=== PATIENT | male | born 1960 | race Caucasian/White ===

== ENCOUNTER 2020-07-30 07:29 | Outpatient (CLI) | payer MEDICARE, MEDICAID, SELFPAY ==
[2020-07-30 08:33] LABS: Hematocrit 37.8 % (42.0-52.0); Hemoglobin 12.5 g/dL (14.0-18.0); Mean Corpuscular HGB Conc 33.1 g/dl (32-36); Mean Corpuscular Hemoglobin 30.9 pg (26-34); Mean Corpuscular Volume 93.6 fl (80-100); Mean Platelet Volume 9.7 fl (7.4-10.4); Platelet Count Result 220 k/mm3 (150-375); Red Blood Count 4.04 M/mm3 (4.6-6.20); Red Cell Distribution Width 13.2 % (11.5-14.5)
[2020-07-30 08:47] LABS: Alanine Aminotransferase 27 U/L (4-50); Albumin Level 3.9 g/dL (3.5-5.1); Alkaline Phosphatase 95 U/L (38-126); Anion Gap 3 mmol/L (8-16); Aspartate Amino Transferase 30 U/L (17-59); Bilirubin,Total 0.3 mg/dL (0.2-1.3); Blood Urea Nitrogen 20 mg/dL (9-20); Calcium 9.1 mg/dL (8.4-10.2); Carbon Dioxide 34 mmol/L (22-30); Chloride 99 mmol/L (98-107); Cholesterol 197 mg/dL (0-200); Estimated Glomerular Filt Rate > 60; Glucose 120 mg/dL (75-110); HDL Direct 68 mg/dL; Potassium 4.6 mmol/L (3.4-5.0); Sodium 136 mmol/L (137-145); Triglycerides 57 mg/dL (<150)
[2020-07-30 08:58] LABS: LDL Cholesterol Direct 103 mg/dL
== END 2020-07-30 07:30 | disposition home or self-care (01) ==
PROVIDERS: PCP Nurse Practitioner Family; Visit Provider Nurse Practitioner Family
DX: E78.5 Hyperlipidemia, unspecified (principal); Z79.899 Other long term (current) drug therapy
CPT/HCPCS: 36415; 80053; 80061; 85027

== ENCOUNTER 2020-08-29 08:49 | Outpatient (CLI) | payer MEDICARE, MEDICAID, SELFPAY ==
--- NOTE | ~2020-08-29 | MR_ITS ---
EXAMINATION: MR lumbar spine wo con DATE: 08/29/2020 09:56 INDICATION: Lumbar radiculopathy. TECHNIQUE: Magnetic resonance imaging (MRI) of the lumbar spine was performed without intravenous con trast. Sequences included sagittal T2-weighted FSE, sagittal T2-weighted FS FSE, sagittal T1-weighted FSE, and axial T2-weighted FSE. COMPARISON: Lumbar spine MRI 02/28/2014 FINDINGS: There is 24 degrees levoscoliosis of thoracic lumbar spine. There is 3 mm retrolisthesis of L1 on L2 and L2 on L3. There is mild chronic anterior wedging of T11 and T12 vertebral bodies. There is moderately decreased disc height at T11-T12 and T12-L1, severely decreased disc height at L1-L2, moderately decreased disc height at L2-L3 and L3-L4, and mildly decreased disc height at L4-L5. The d istal spinal cord signal intensity is normal. The conus medullaris is at T12-L1. Mild epidural lipoma tosis is noted. The following disc levels are specifically discussed: L1-L2: The disc is bulging. There is severe right and mild left facet joint osteoarthritis. There is mild right neural foraminal stenosis. There is mild central canal stenosis. L2-L3: The disc is bulging and has an annular fissure. There is mild right and moderate left facet stephanie int osteoarthritis. There is moderate right and mild left neural foraminal stenosis. There is mild ce ntral canal stenosis. L3-L4: The disc is bulging. There is severe bilateral facet joint osteoarthritis. There is moderate b ilateral neural foraminal stenosis. There is mild central canal stenosis. L4-L5: The disc is bulging. There is severe bilateral facet joint osteoarthritis. There is moderate b ilateral neural foraminal stenosis. There is mild central canal stenosis. L5-S1: There is a central protrusion. There is severe bilateral facet joint osteoarthritis. There is mild bilateral neural foraminal stenosis. There is mild central canal stenosis. IMPRESSION: 1. Severe lumbar spondylosis, worsened from 02/28/2014. 2. Thoracolumbar levoscoliosis. Reviewed, dictated and finalized at location A. EL BUNG REMOVER AND DUMPER
== END 2020-08-29 08:50 | disposition home or self-care (01) ==
LOC: ANHIMG 08:54
PROVIDERS: PCP Nurse Practitioner Family; Visit Provider Nurse Practitioner Family
DX: M47.27 Other spondylosis with radiculopathy, lumbosacral region (principal); M47.25 Other spondylosis with radiculopathy, thoracolumbar region; M43.16 Spondylolisthesis, lumbar region; M41.9 Scoliosis, unspecified; M48.07 Spinal stenosis, lumbosacral region; M48.05 Spinal stenosis, thoracolumbar region
CPT/HCPCS: 72148

== ENCOUNTER 2020-10-22 07:49 | Outpatient (CLI) | payer MEDICARE, MEDICAID, SELFPAY ==
[2020-10-22 10:15] LABS: Iron 119 ug/dL (49-181)
[2020-10-22 10:26] LABS: Percent Iron Saturation 34 % (20-50)
== END 2020-10-22 07:50 | disposition home or self-care (01) ==
LOC: ANHLAB 08:00
PROVIDERS: PCP Nurse Practitioner Family; Visit Provider Nurse Practitioner Family
DX: D64.9 Anemia, unspecified (principal)
CPT/HCPCS: 36415; 82607; 83540; 83550

== ENCOUNTER 2021-01-22 08:24 | Outpatient (CLI) | payer MEDICARE, MEDICAID, SELFPAY | END 2021-01-22 08:25 | disposition home or self-care (01) | LOC: ANHCOVIDVC 08:24 | PROVIDERS: PCP Nurse Practitioner Family | DX: Z23 Encounter for immunization (principal) | CPT/HCPCS: 0001A; 91300 ==

== ENCOUNTER 2021-02-12 08:31 | Outpatient (CLI) | payer MEDICARE, MEDICAID, SELFPAY | END 2021-02-12 08:32 | LOC: ANHCOVIDVC 08:32 | PROVIDERS: PCP Nurse Practitioner Family | DX: Z23 Encounter for immunization (principal) | CPT/HCPCS: 0002A; 91300 ==

== ENCOUNTER 2021-09-04 07:54 | Outpatient (CLI) | payer MEDICARE, MEDICAID, SELFPAY ==
--- NOTE | ~2021-09-04 | XR_ITS ---
EXAMINATION: XR lumbar spine min 4V DATE: 09/04/2021 10:02 INDICATION: Scoliosis survey TECHNIQUE: 4 views of the lumbar spine were obtained including anteroposterior and lateral in neutral , flexion and extension views. COMPARISON: Lumbar spine MR dated 09/04/2021 FINDINGS: 30 degrees lumbar levoscoliosis measured between T11 and L3. 2 mm retrolisthesis L2 on L3 which remai ns unchanged with flexion and increases to 3 mm with extension. 4 mm anterolisthesis L4 on L5 which i ncreases to 6 mm with flexion and decreases to 2 mm with extension. Vertebral body heights are normal . Moderate to severe right-sided disc height loss at L1-L2 and L2-L3. Moderate right-sided predominan t disc height loss at L3-L4, moderate disc height loss at T8-T9, T10-T11, T11-T12 and L4-L5 and mild disc height loss at L5-S1. Moderate to severe lower lumbar facet osteoarthritis. Ankylosis across the cephalad aspect of the left sacral iliac joint. Mild osteoarthritis at the right sacroiliac joint. L tio bases are clear. Heart size is normal. IMPRESSION: 1. Lumbar levorotoscoliosis with severe spondylosis. 2. 2 mm retrolisthesis L2 on L3 without significant change with flexion or extension and 4 mm anterol isthesis L4 on L5 which increases by 2 mm with flexion and decreases 2 mm with extension. Reviewed, dictated and finalized at location A. OAT ENGINEER IMPRESSION: 1. Lumbar levorotoscoliosis with severe spondylosis. 2. 2 mm retrolisthesis L2 on L3 without significant change with flexion or exte nsion and 4 mm anterolisthesis L4 on L5 which increases by 2 mm with flexion an d decreases 2 mm with extension.
--- NOTE | ~2021-09-04 | MR_ITS ---
EXAMINATION: MR lumbar spine wo con DATE: 09/04/2021 09:43 INDICATION: Scoliosis. Back pain. Right hip and leg pain. TECHNIQUE: Magnetic resonance imaging (MRI) of the lumbar spine was performed without intravenous con trast. Sequences included sagittal T2-weighted FSE, sagittal T2-weighted FS FSE, coronal T2-weighted FSE, sagittal T1-weighted FSE, and axial T2-weighted FSE. COMPARISON: Lumbar spine MRI 08/29/2020 FINDINGS: There is 21 degrees levoscoliosis of thoracolumbar spine. There is 4 mm retrolisthesis of L 2 on L3 and 3 mm anterolisthesis of L4 on L5. There is moderately decreased disc height at T12-L1, se verely decreased disc height at L1-L2 and L2-L3, and moderately decreased disc height at L3-L4 and L4 -L5 with endplate remodeling. The distal spinal cord signal intensity is normal. The conus medullaris is at T12-L1. The following disc levels are specifically discussed: T12-L1: The disc is bulging. There is mild bilateral facet joint osteoarthritis. There is mild left n eural foraminal stenosis. There is mild central canal stenosis. L1-L2: The disc is bulging and has an annular fissure. There is mild bilateral facet joint osteoarthr itis. There is moderate right and mild left neural foraminal stenosis. There is mild central canal st enosis. L2-L3: The disc is bulging with superimposed right central extrusion with mass effect on right L3 ner ve root in right lateral recess. There is mild lateral facet joint osteoarthritis. There is moderate right and mild left neural foraminal stenosis. There is mild central canal stenosis. There is moderat e stenosis of right lateral recess. L3-L4: The disc is bulging and has an annular fissure. There is severe right and moderate left facet joint osteoarthritis. There is moderate bilateral neural foraminal stenosis. There is moderate centra l canal stenosis. L4-L5: The disc is bulging with superimposed left subarticular and foraminal zone extrusion. There is severe bilateral facet joint osteoarthritis. There is a 5 mm synovial cyst from left facet joint in the central spinal canal. There is moderate and severe left neural foraminal stenosis. There is sever e central canal stenosis. L5-S1: The disc does not extend beyond the endplate margin. There is moderate bilateral facet joint o steoarthritis. There is mild bilateral neural foraminal stenosis. There is no central canal stenosis. IMPRESSION: 1. Severe lumbar spondylosis, worsened from 08/29/2020. 2. Thoracolumbar levoscoliosis. Reviewed, dictated and finalized at location B. SITIONAL LIVING SPECIALIST
--- NOTE | ~2021-09-04 | XR_ITS ---
EXAMINATION: XR scoliosis survey DATE: 09/04/2021 10:02 INDICATION: Scoliosis TECHNIQUE: TECHNIQUE: Standing AP and lateral views of the entire spine were obtained on 3 overlappin g cephalad to caudal images. COMPARISON: CT lumbar spine dated 10/23/2013 FINDINGS: 30 degree lumbar levorotoscoliosis measured between T12 and L4. 17 degree thoracic dextro scoliosis b etween T6 and T12. Vertebral body heights are normal. 4 mm anterolisthesis L4 on L5 with mild associa moragn disc height loss. Moderate to severe right-sided predominant disc height loss from T12-L1 through L2-L3. Mild disc height loss with mild degenerative endplate changes at multiple levels in the mid t o lower thoracic spine. Bilateral reverse total shoulder arthroplasties. Visualized portions of the l ungs are clear. Cardiomediastinal silhouette is normal. Normal bowel gas pattern. IMPRESSION: 1. 17 degree thoracic dextro scoliosis in 30 degrees lumbar levorotoscoliosis. 2. Mild thoracic and moderate to severe lumbar spondylosis. Reviewed, dictated and finalized at location A. EL TRUCK TECHNICIAN
== END 2021-09-04 07:55 | disposition home or self-care (01) ==
LOC: ANHIMG 08:06
PROVIDERS: PCP Nurse Practitioner Family
DX: M41.9 Scoliosis, unspecified (principal); M47.894 Other spondylosis, thoracic region; M47.896 Other spondylosis, lumbar region
CPT/HCPCS: 72082; 72110; 72148

== ENCOUNTER 2021-12-29 07:08 | Emergency (ER) | payer MEDICARE, MEDICAID, SELFPAY ==
[2021-12-29 07:08] VITALS: BP 155/88; PULSE 84; RESP 16; TEMP 36.6; O2SAT 95
--- NOTE | 2021-12-29 07:50 | PC.NURSE ---
Patient verbally aggressive toward this RN. Demanding pain medication immediately and threatening to leave ER if he doesn't receive medication. made aware.
[2021-12-29] MEDS: ONDANSETRON HCL ODT 4 MG TABLET PO (07:58)
[2021-12-29] MEDS: HYDROmorphone HCL INJ (*CRX) 1 MG/ML SYR IM (07:58)
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
--- NOTE | 2021-12-29 08:31 | PC.NURSE ---
Patient returned from CT and is now asleep in stretcher with call-light within reach.
[2021-12-29] MEDS: diazePAM INJ (*CRX) 10 MG/2 ML SYRINGE 5 MG IM (08:51)
--- NOTE | 2021-12-29 09:15 | PC.NURSE ---
Dr. Pantoja back at bedside to re-evaluate patient.
[2021-12-29] MEDS: KETOROLAC (*BKC) 60 MG/2 ML VIAL IM (09:37)
--- NOTE | 2021-12-29 10:10 | PC.NURSE ---
Patient's called. Will arrange transport when patient is discharged. [phone] Gia
--- NOTE | 2021-12-29 10:26 | PC.NURSE ---
Patient continues to refuse CT as he states that he can not tolerate the pain of lying on his back. made aware.
[2021-12-29 11:16] VITALS: BP 187/100; PULSE 99; RESP 16; O2SAT 98
== END 2021-12-29 11:19 | disposition home or self-care (01) ==
PROVIDERS: Emergency Provider Emergency Medicine; PCP Nurse Practitioner Family
DX: M54.50 Low back pain, unspecified (principal); G89.29 Other chronic pain; J44.9 Chronic obstructive pulmonary disease, unspecified; G47.33 Obstructive sleep apnea (adult) (pediatric); Z96.611 Presence of right artificial shoulder joint
CPT/HCPCS: 96372; 99284; A9270; J1170; J1885; J3360

== ENCOUNTER 2021-12-30 00:51 | Emergency (ER) | payer MEDICARE, MEDICAID, SELFPAY ==
[2021-12-30] VITALS (14 sets, daily range): BP systolic 170–185; BP diastolic 99–124; PULSE 82–100; RESP 18–29; TEMP 36.6; O2SAT 95–100
--- NOTE | 2021-12-30 02:41 | PC.NURSE ---
Patient frequently asking for pain medication. Patient informed that the provider will be in to see him, and he will order medications. Patient demanding I need pain medicine. ERP aware.
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
[2021-12-30] MEDS: CYCLOBENZAPRINE HCL 10 MG TABLET PO (03:06)
[2021-12-30] MEDS: HYDROmorphone HCL INJ (*CRX) 1 MG/ML SYR IV PUSH (03:07)
--- NOTE | 2021-12-30 03:22 | PC.NURSE ---
Called patients to inform of his discharge and discharge instructions. She stated she does not drive and she will try to arrange to see if she can have someone come pick him up. She stated she will try to call the med cab they normally use or a friend to come pick him up. She stated she will call back with an update on transportation for him.
--- NOTE | 2021-12-30 03:33 | PC.NURSE ---
Patients calls back to inform that someone is on their way to come pick him up.
== END 2021-12-30 03:42 | disposition home or self-care (01) ==
PROVIDERS: Emergency Provider Emergency Medicine; PCP Nurse Practitioner Family
DX: M54.42 Lumbago with sciatica, left side (principal); J44.9 Chronic obstructive pulmonary disease, unspecified; G47.33 Obstructive sleep apnea (adult) (pediatric)
CPT/HCPCS: 96374; 96375; 99284; A9270; J1100; J1170

== ENCOUNTER 2022-02-17 07:39 | Outpatient (CLI) | payer MEDICARE, MEDICAID, SELFPAY ==
--- NOTE | ~2022-02-17 | US_ITS ---
EXAMINATION: US arterial ankle brachial ind DATE: 02/17/2022 08:17 INDICATION: 1 block claudication. Peripheral vascular disease. Hypertension. History of stroke. TECHNIQUE: Segmental pressures and plethysmographic and Doppler waveforms of the brachial and lower e xtremity arteries were obtained. COMPARISON: None. FINDINGS: Right and left brachial artery pressures of 119 mm Hg and 126 mm Hg, respectively, are concordant (no rmal difference <= 30 mmHg). The right ankle-brachial index (SYED) is 1.12 (normal >= 0.9-1.0). The right great toe-brachial index (TBI) is 0.69 (normal >= 0.65). Arterial Doppler waveforms are biphasic. The left SYED is 1.12. The left TBI is 0.43. Arterial Doppler waveforms are biphasic. IMPRESSION: Bilateral normal SYED 1.12 Normal right TBI is 0.69 Depressed left TBI of 0.43 Reviewed, dictated and finalized at Location A. Reviewed, dictated and finalized at location B.
== END 2022-02-17 07:40 | disposition home or self-care (01) ==
PROVIDERS: PCP Family Medicine; Visit Provider Nurse Practitioner Family
DX: I73.9 Peripheral vascular disease, unspecified (principal)
CPT/HCPCS: 93922

== ENCOUNTER 2022-05-01 13:58 | Emergency (ER) | payer MEDICARE, MEDICAID, SELFPAY ==
[2022-05-01] VITALS (7 sets, daily range): BP systolic 158–173; BP diastolic 83–87; PULSE 66–87; RESP 16–29; O2SAT 96–99
--- NOTE | ~2022-05-01 | XR_ITS ---
EXAMINATION: XR pelvis 1-2V DATE: 05/01/2022 15:51 INDICATION: Left lower limb pain. TECHNIQUE: An anteroposterior view of the pelvis was obtained. COMPARISON: None. FINDINGS: There is levoscoliosis and moderate spondylosis of lumbar spine. No fracture. There is mild right hip osteoarthritis and moderate left hip osteoarthritis. IMPRESSION: 1. Mild right hip osteoarthritis and moderate left hip osteoarthritis. Reviewed, dictated and finalized at location A.
--- NOTE | ~2022-05-01 | XR_ITS ---
EXAMINATION: XR femur LT min 2V DATE: 05/01/2022 15:50 INDICATION: Left thigh pain. TECHNIQUE: 2 views of left femur on 4 radiographs were obtained. COMPARISON: None. FINDINGS: Bone alignment is normal. No fracture. There is moderate left hip osteoarthritis. No knee j oint effusion. IMPRESSION: 1. Moderate left hip osteoarthritis. Reviewed, dictated and finalized at location A.
--- NOTE | ~2022-05-01 | XR_ITS ---
EXAMINATION: XR chest 1V portable DATE: 05/01/2022 15:50 INDICATION: Wheezing. TECHNIQUE: A single frontal view of the chest was obtained. COMPARISON: Chest 2 views 11/28/2010 FINDINGS: There is mild atelectasis at left lung base. No pleural effusion or pneumothorax. The heart size is normal. There are bilateral shoulder arthroplasties. IMPRESSION: 1. Mild atelectasis at left lung base. Reviewed, dictated and finalized at location A.
--- NOTE | 2022-05-01 14:46 | ECG_ITS ---
Measurements Intervals [place] Rate: 78 P: 57 MT: 159 QRS: 6 QRSD: 79 T: 25 QT: 341 QTc: 390 Interpretive Statements SINUS RHYTHM CANNOT RULE OUT SEPTAL INFARCT, AGE INDETERMINATE CONSIDER INFERIOR INFARCT, AGE INDETERMINATE BASELINE ARTIFACT- I, II, III, AVR, AVL, AVF ABNORMAL ECG Electronically Signed On 05-01-2022 16:23:39 CDT by Chico Amador D.O.
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
[2022-05-01] MEDS: MORPHINE SULFATE (*CRX) 4 MG/ML INJ IV PUSH (14:51)
[2022-05-01] MEDS: ONDANSETRON INJ 4 MG/2 ML VIAL IV PUSH (14:51)
[2022-05-01 15:06] LABS: Basophils Absolute Auto 0.1 K/mm3 (0.0-0.1); Basophils Percent Auto 1.1 % (0.2-1.2); Eosinophils Absolute Auto 0.2 K/mm3 (0-0.3); Eosinophils Percent Auto 1.7 % (0-4.4); Hematocrit 37.5 % (42.0-52.0); Hemoglobin 12.4 g/dL (14.0-18.0); Immature Granulocyte Absolute 0.03 K/mm3 (0.00-0.031); Immature Granulocyte Percent A 0.3 % (0-0.5); Lymphocytes Absolute Auto 1.17 K/mm3 (0.9-3.2); Lymphocytes Percent Auto 13.3 % (18.3-44.2); Mean Corpuscular HGB Conc 33.1 g/dl (32-36); Mean Corpuscular Hemoglobin 30.6 pg (26-34); Mean Corpuscular Volume 92.6 fl (80-100); Mean Platelet Volume 9.7 fl (7.4-10.4); Monocytes Percent Auto 11.6 % (2.6-8.5); Neutrophils Absolute Auto 6.3 K/mm3 (1.3-6.7); Platelet Count Result 225 k/mm3 (150-375); Red Blood Count 4.05 M/mm3 (4.6-6.20); Red Cell Distribution Width 12.9 % (11.5-14.5); White Blood Count 8.8 K/mm3 (4.5-10.0)
[2022-05-01 15:14] LABS: Alveolar/Arterial O2 Gradient 19.9 mmHg; Base Excess ABG 3.4 mEq/l (+/-2.0); Carboxyhemoglobin 1.5 % THb (0-2.0); Device ROOM AIR; Fractional Inspired Oxygen 21 %; HCO3 ABG 29.1 mEq/l (22.0-26.0); Methemoglobin ABG 0.1 %THb (0-1.5); Modified Allen's Test Pass; Oxygen Content ABG 16.6 %vol (16.0-22.0); Oxygen Saturation ABG 94.2 % (95.0-100.0); Oxyhemoglobin 91.6 % THb (90.0-100.0); PCO2 ABG 48.6 mmHg (35.0-45.0); PO2 ABG 71.6 mmHg (80.0-100.0); PO2 FiO2 Ratio Arterial Blood 3.41 %; Reduced Hemoglobin 6.8 %THb (0-5.0); Site Drawn RIGHT RADIAL; Total Hemoglobin 12.9 g/dL (12.0-18.0); pH ABG 7.395 (7.350-7.450)
[2022-05-01 15:24] LABS: Alanine Aminotransferase 19 U/L (6-50); Albumin Level 4.2 g/dL (3.5-5.1); Alkaline Phosphatase 83 U/L (38-126); Anion Gap 4 mmol/L (8-16); Aspartate Amino Transferase 30 U/L (17-59); Bilirubin,Total 0.5 mg/dL (0.2-1.3); Blood Urea Nitrogen 13 mg/dL (9-20); Calcium 9.3 mg/dL (8.4-10.2); Carbon Dioxide 29 mmol/L (22-30); Chloride 103 mmol/L (98-107); Estimated CRCL calculation 77 ml/min; Estimated Glomerular Filt Rate > 60; Glucose 96 mg/dL (65-110); Potassium 4.1 mmol/L (3.4-5.0); Sodium 136 mmol/L (137-145)
[2022-05-01 15:27] LABS: Prothrombin Time 12.7 Seconds (11.1-14.7)
[2022-05-01 15:35] LABS: NT Pro B Type Natriuretic Pept 125 pg/mL (5-100); Troponin I < 0.012 ng/mL (0.000-0.034)
[2022-05-01 15:38] LABS: Appearance Urine Clear (Clear); Bilirubin Urine Negative (Negative); Blood Urine Negative (Negative); Color Urine Yellow (Yellow); Glucose Urine UA Negative (Negative); Ketones Urine Negative (Negative); Leukocyte Esterase Ur Negative LEU/UL (Negative); Nitrate Urine Negative (Negative); Protein Urine Negative (Negative); Specific Grav Ur 1.015 (1.001-1.035); Urobilinogen Urine 0.2 mg/dL (<2.0); pH Urine 7.5 (5.0-9.0)
[2022-05-01 15:57] LABS: Add Urine Microscopic? NO
[2022-05-01] MEDS: traMADol HCL (*CRX) 50 MG TABLET PO (18:51)
== END 2022-05-01 19:06 | disposition home or self-care (01) ==
PROVIDERS: Emergency Provider General Practice; PCP Nurse Practitioner Family
DX: M16.0 Bilateral primary osteoarthritis of hip (principal); M79.605 Pain in left leg; R60.0 Localized edema; J42 Unspecified chronic bronchitis; I10 Essential (primary) hypertension; G47.33 Obstructive sleep apnea (adult) (pediatric); Z96.611 Presence of right artificial shoulder joint; R94.31 Abnormal electrocardiogram [ECG] [EKG]
CPT/HCPCS: 36415; 36600; 71045; 72170; 73552; 80053; 81003; 82375; 82805; 83050; 83880; 84484; 85025; 85610; 85730; 93005; 96374; 96375; 99284; A9270; J2270; J2405

== ENCOUNTER 2022-08-13 08:33 | Outpatient (CLI) | payer MEDICARE, MEDICAID, SELFPAY ==
[2022-08-13 19:34] LABS: Alanine Aminotransferase 25 U/L (6-50); Albumin Level 4.4 g/dL (3.5-5.1); Alkaline Phosphatase 86 U/L (38-126); Anion Gap 9 mmol/L (8-16); Aspartate Amino Transferase 33 U/L (17-59); Bilirubin,Total 0.6 mg/dL (0.2-1.3); Blood Urea Nitrogen 12 mg/dL (9-20); Calcium 8.8 mg/dL (8.4-10.2); Carbon Dioxide 27 mmol/L (22-30); Chloride 100 mmol/L (98-107); Cholesterol 235 mg/dL (0-200); Estimated Glomerular Filt Rate > 60; Glucose 107 mg/dL (65-110); HDL Direct 56 mg/dL; Potassium 4.6 mmol/L (3.4-5.0); Sodium 136 mmol/L (137-145); Triglycerides 72 mg/dL (<150)
[2022-08-13 19:45] LABS: LDL Cholesterol Direct 133 mg/dL
== END 2022-08-13 08:34 | disposition home or self-care (01) ==
LOC: ANHGOSHLAB 08:39
PROVIDERS: PCP Nurse Practitioner Family; Visit Provider Nurse Practitioner Family
DX: E78.5 Hyperlipidemia, unspecified (principal); I10 Essential (primary) hypertension
CPT/HCPCS: 36415; 80053; 80061

== ENCOUNTER 2023-02-19 09:53 | Outpatient (CLI) | payer MEDICARE, MEDICAID, SELFPAY ==
[2023-02-19 19:25] LABS: Basophils Absolute Auto 0.1 K/mm3 (0.0-0.1); Basophils Percent Auto 1.3 % (0.2-1.2); Eosinophils Absolute Auto 0.2 K/mm3 (0-0.3); Eosinophils Percent Auto 2.7 % (0-4.4); Hematocrit 41.2 % (42.0-52.0); Hemoglobin 13.3 g/dL (14.0-18.0); Immature Granulocyte Absolute 0.03 K/mm3 (0.00-0.031); Immature Granulocyte Percent A 0.3 % (0-0.5); Lymphocytes Absolute Auto 1.31 K/mm3 (0.9-3.2); Lymphocytes Percent Auto 15.3 % (18.3-44.2); Mean Corpuscular HGB Conc 32.3 g/dl (32-36); Mean Platelet Volume 11.2 fl (7.4-10.4); Monocytes Absolute Auto 0.8 K/mm3 (0.1-0.6); Monocytes Percent Auto 9.3 % (2.6-8.5); Neutrophils Absolute Auto 6.1 K/mm3 (1.3-6.7); Neutrophils Percent Auto 71.1 % (45.5-73.1); Platelet Count Result 218 k/mm3 (150-375); Red Blood Count 4.43 M/mm3 (4.6-6.20); Red Cell Distribution Width 13.7 % (11.5-14.5); White Blood Count 8.6 K/mm3 (4.5-10.0)
[2023-02-19 19:48] LABS: LDL Cholesterol Direct 134 mg/dL
[2023-02-19 19:51] LABS: Thyroid Stimulating Hormone 0.707 uIU/mL (0.465-4.680)
[2023-02-19 19:55] LABS: Alanine Aminotransferase 20 U/L (6-50); Albumin Level 4.1 g/dL (3.5-5.1); Alkaline Phosphatase 95 U/L (38-126); Anion Gap 2 mmol/L (8-16); Aspartate Amino Transferase 41 U/L (17-59); Bilirubin,Total 0.8 mg/dL (0.2-1.3); Blood Urea Nitrogen 16 mg/dL (9-20); Calcium 8.7 mg/dL (8.4-10.2); Carbon Dioxide 32 mmol/L (22-30); Chloride 101 mmol/L (98-107); Cholesterol 207 mg/dL (0-200); Estimated Glomerular Filt Rate > 60; Glucose 89 mg/dL (65-110); HDL Direct 47 mg/dL; Potassium 5.1 mmol/L (3.4-5.0); Sodium 135 mmol/L (137-145); Triglycerides 73 mg/dL (<150)
[2023-02-19 22:13] LABS: Prostate Specific Antigen 1.8 ng/mL (< OR = 4.0)
== END 2023-02-19 09:54 | disposition home or self-care (01) ==
LOC: ANHGOSHLAB 09:54
PROVIDERS: PCP Family Medicine; Visit Provider Nurse Practitioner Family
DX: E78.5 Hyperlipidemia, unspecified (principal); I10 Essential (primary) hypertension; Z12.5 Encounter for screening for malignant neoplasm of prostate
CPT/HCPCS: 36415; 80053; 80061; 84153; 84443; 85025; G0103

== ENCOUNTER 2023-08-27 08:35 | Outpatient (CLI) | payer MEDICARE, MEDICAID, SELFPAY ==
[2023-08-27 19:23] LABS: Basophils Absolute Auto 0.1 K/mm3 (0.0-0.1); Basophils Percent Auto 1.5 % (0.2-1.2); Eosinophils Absolute Auto 0.1 K/mm3 (0-0.3); Eosinophils Percent Auto 2.1 % (0-4.4); Hematocrit 39.6 % (42.0-52.0); Hemoglobin 12.5 g/dL (14.0-18.0); Immature Granulocyte Absolute 0.02 K/mm3 (0.00-0.031); Immature Granulocyte Percent A 0.3 % (0-0.5); Lymphocytes Percent Auto 13.5 % (18.3-44.2); Mean Corpuscular HGB Conc 31.6 g/dl (32-36); Mean Corpuscular Hemoglobin 29.6 pg (26-34); Mean Corpuscular Volume 93.8 fl (80-100); Mean Platelet Volume 10.6 fl (7.4-10.4); Monocytes Absolute Auto 0.6 K/mm3 (0.1-0.6); Monocytes Percent Auto 9.6 % (2.6-8.5); Neutrophils Absolute Auto 4.9 K/mm3 (1.3-6.7); Platelet Count Result 227 k/mm3 (150-375); Red Blood Count 4.22 M/mm3 (4.6-6.20); Red Cell Distribution Width 13.8 % (11.5-14.5); White Blood Count 6.7 K/mm3 (4.5-10.0)
[2023-08-27 19:26] LABS: Alanine Aminotransferase 23 U/L (6-50); Albumin Level 4.1 g/dL (3.5-5.1); Alkaline Phosphatase 78 U/L (38-126); Anion Gap 10 mmol/L (8-16); Aspartate Amino Transferase 33 U/L (17-59); Bilirubin,Total 0.9 mg/dL (0.2-1.3); Blood Urea Nitrogen 16 mg/dL (9-20); Calcium 8.8 mg/dL (8.4-10.2); Carbon Dioxide 27 mmol/L (22-30); Chloride 99 mmol/L (98-107); Cholesterol 154 mg/dL (0-200); Estimated Glomerular Filt Rate > 60; Glucose 87 mg/dL (65-110); HDL Direct 56 mg/dL; Potassium 4.8 mmol/L (3.4-5.0); Sodium 136 mmol/L (137-145); Triglycerides 62 mg/dL (<150)
[2023-08-27 19:37] LABS: LDL Cholesterol Direct 78 mg/dL
[2023-08-27 19:43] LABS: Thyroid Stimulating Hormone 0.622 uIU/mL (0.465-4.680)
[2023-08-27 19:54] LABS: Hemoglobin A1C 5.5 % (<5.7)
== END 2023-08-27 08:36 | disposition home or self-care (01) ==
LOC: ANHGOSHLAB 08:37
PROVIDERS: PCP Family Medicine; Visit Provider Nurse Practitioner Family
DX: Z00.00 Encounter for general adult medical examination without abnormal findings (principal); Z13.29 Encounter for screening for other suspected endocrine disorder; R73.03 Prediabetes; I10 Essential (primary) hypertension; Z13.220 Encounter for screening for lipoid disorders
CPT/HCPCS: 36415; 80053; 80061; 83036; 84443; 85025

== ENCOUNTER 2024-02-25 09:01 | Outpatient (CLI) | payer MEDICARE, MEDICAID, SELFPAY ==
[2024-02-25 19:13] LABS: Hematocrit 39.6 % (42.0-52.0); Hemoglobin 12.8 g/dL (14.0-18.0); Mean Corpuscular HGB Conc 32.3 g/dl (32-36); Mean Corpuscular Hemoglobin 29.8 pg (26-34); Mean Corpuscular Volume 92.1 fl (80-100); Platelet Count Result 235 k/mm3 (150-375); Red Cell Distribution Width 13.8 % (11.5-14.5); White Blood Count 7.9 K/mm3 (4.5-10.0)
[2024-02-25 19:23] LABS: Alanine Aminotransferase 26 U/L (6-50); Albumin Level 4.3 g/dL (3.5-5.1); Alkaline Phosphatase 86 U/L (38-126); Anion Gap 6 mmol/L (4-12); Aspartate Amino Transferase 35 U/L (17-59); Bilirubin,Total 0.8 mg/dL (0.2-1.3); Blood Urea Nitrogen 11 mg/dL (9-20); Calcium 8.9 mg/dL (8.4-10.2); Carbon Dioxide 27 mmol/L (22-30); Chloride 100 mmol/L (98-107); Cholesterol 142 mg/dL (0-200); Estimated Glomerular Filt Rate > 60; Glucose 87 mg/dL (65-110); HDL Direct 45 mg/dL; Potassium 4.3 mmol/L (3.4-5.0); Sodium 133 mmol/L (137-145); Triglycerides 71 mg/dL (<150)
[2024-02-25 19:35] LABS: LDL Cholesterol Direct 83 mg/dL
[2024-02-25 19:55] LABS: Prostate Specific Antigen 1.5 ng/mL (< OR = 4.0); Thyroid Stimulating Hormone 0.703 uIU/mL (0.465-4.680)
[2024-02-25 20:05] LABS: Vitamin D 25 Hydroxy 22.8 ng/mL
== END 2024-02-25 09:02 | disposition home or self-care (01) ==
LOC: ANHGOSHLAB 09:03
PROVIDERS: PCP Family Medicine; Visit Provider Nurse Practitioner
DX: E55.9 Vitamin D deficiency, unspecified (principal); Z00.00 Encounter for general adult medical examination without abnormal findings; I10 Essential (primary) hypertension; Z12.5 Encounter for screening for malignant neoplasm of prostate
CPT/HCPCS: 36415; 80053; 80061; 82306; 84153; 84443; 85027; G0103

== ENCOUNTER 2024-03-11 09:41 | Outpatient (CLI) | payer MEDICARE, MEDICAID, SELFPAY ==
--- NOTE | ~2024-03-11 | US_ITS ---
US abdomen limited INDICATION: Right upper quadrant pain PROCEDURE: Realtime right upper abdominal ultrasound. COMPARISON: No prior studies for comparison. FINDINGS: Study limited due to bowel gas. The pancreas is normal without focal mass or pancreatic reji madeline dilation. Liver echotexture is normal without focal mass or intrahepatic biliary dilatation. Th ere is normal directional flow in the portal vein. The gallbladder is normal without stones, gallbladder wall thickening or pericholecystic fluid. Comm on bile duct not adequately visualized. No sonographic Chun's sign. IMPRESSION: 1: Normal limited abdominal ultrasound. Reviewed, dictated and finalized at location B.
== END 2024-03-11 09:42 | disposition home or self-care (01) ==
PROVIDERS: PCP Family Medicine; Visit Provider Nurse Practitioner
DX: R10.11 Right upper quadrant pain (principal)
CPT/HCPCS: 76705

== ENCOUNTER 2024-03-16 08:11 | Outpatient (CLI) | payer MEDICARE, MEDICAID, SELFPAY ==
[2024-03-16 13:04] LABS: Alanine Aminotransferase 24 U/L (6-50); Albumin Level 4.1 g/dL (3.5-5.1); Alkaline Phosphatase 84 U/L (38-126); Aspartate Amino Transferase 55 U/L (17-59); Bilirubin,Total 0.7 mg/dL (0.2-1.3)
== END 2024-03-16 08:12 | disposition home or self-care (01) ==
LOC: ANHGOSHLAB 08:13
PROVIDERS: PCP Family Medicine; Visit Provider Nurse Practitioner Family
DX: R10.11 Right upper quadrant pain (principal); R11.10 Vomiting, unspecified; R19.7 Diarrhea, unspecified
CPT/HCPCS: 36415; 80076

== ENCOUNTER 2024-03-18 08:38 | Outpatient (CLI) | payer MEDICARE, MEDICAID, SELFPAY ==
--- NOTE | ~2024-03-18 | NM_ITS ---
EXAMINATION: NM hepatobiliary w pharm DATE: 03/18/2024 11:05 INDICATION: Right upper quadrant abdominal pain. COMPARISON: Ultrasound 03/11/2024 TECHNIQUE: 5.4 mCi Tc-99m mebrofenin (Choletec) was administered intravenously. Scintigraphic images of the abdomen were obtained for one hour. Then, 1.2 mcg sincalide (Kinevac) IV was administered, an d imaging was continued for 30 minutes. FINDINGS: There is normal clearance of radiotracer from the blood pool. There is homogeneous tracer u ptake by the liver. Activity progresses to the bowel and gallbladder. Gallbladder ejection fraction (GBEF) was 79%. Note that most patients with gallbladder dysfunction have GBEF < 35%, which overlaps with the broad normal range of 10-90%. IMPRESSION: 1. Normal hepatobiliary scintigraphy. Reviewed, dictated and finalized at location E.
== END 2024-03-18 08:39 | disposition home or self-care (01) ==
LOC: ANHIMG 08:40
PROVIDERS: PCP Family Medicine; Visit Provider Nurse Practitioner Family
DX: R10.11 Right upper quadrant pain (principal); R11.10 Vomiting, unspecified
CPT/HCPCS: 78227; A9537; J2805

== ENCOUNTER 2024-06-02 01:56 | Day surgery (SDC) | payer MEDICARE, MEDICAID, SELFPAY ==
[2024-05-13 13:38] VITALS: BMI 23.4
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
[2024-06-02 12:54] VITALS: BP 182/64; PULSE 50; RESP 20; TEMP 35.8; O2SAT 100
[2024-06-02] MEDS: LACTATED RINGERS 1,000 ML 150 ML IV CONT (12:57)
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
[2024-06-02 13:14] VITALS: BP 150/72; PULSE 50; RESP 22; O2SAT 100
[2024-06-02 13:24] VITALS: BP 148/80; PULSE 52; RESP 20; O2SAT 100
[2024-06-02 13:34] VITALS: BP 161/86; PULSE 48; RESP 20; O2SAT 100
== END 2024-06-02 13:43 | disposition home or self-care (01) ==
PROVIDERS: PCP Nurse Practitioner; Referring Provider Nurse Practitioner Family; Visit Provider Internal Medicine Gastroenterology
PROC: 0DJ08ZZ Inspection of Upper Intestinal Tract, Via Natural or Artificial Opening Endoscopic (ICD-10-PCS; CPT 43235; principal; 2024-06-02 13:30)
DX: K29.50 Unspecified chronic gastritis without bleeding (principal); D64.9 Anemia, unspecified; J45.909 Unspecified asthma, uncomplicated; I10 Essential (primary) hypertension; J42 Unspecified chronic bronchitis; M51.06 Intervertebral disc disorders with myelopathy, lumbar region; G47.33 Obstructive sleep apnea (adult) (pediatric); F20.9 Schizophrenia, unspecified; F12.90 Cannabis use, unspecified, uncomplicated; Z79.51 Long term (current) use of inhaled steroids; Z98.890 Other specified postprocedural states; Z98.1 Arthrodesis status
CPT/HCPCS: 43239; 88305; J2704; J7120

== ENCOUNTER 2024-09-20 07:55 | Outpatient (CLI) | payer MEDICARE, MEDICAID, SELFPAY ==
--- NOTE | ~2024-09-20 | MR_ITS ---
MRI of the lumbar spine Clinical History: Radiculopathy Technique: Axial T2-weighted images, and sagittal T1-weighted, T2-weighted, and and T2 fat-sat images were acquired. COMPARISON: 09/04/2021 Findings: Levoscoliosis of the spine noted. There is a 5 mm anterolisthesis of L4 over L5. There is 4 mm retrolisthesis of L2 over L3. There is 5 mm retrolisthesis of L3 over L4. There are reactive moise ow signal changes but no suspicious or aggressive bone marrow signal lesion/abnormality identified. At L1-L2, there is advanced degenerative disc narrowing with severe facet arthropathy. There is minim al disc bulge. No nini central canal stenosis. There is moderate right neural foraminal narrowing. L eft neural foramen preserved. At L2-L3, there is severe degenerative disc narrowing. There is disc bulge and advanced facet arthrop athy, with focal severe spinal canal stenosis/thecal sac compression. There is severe right neural fo raminal narrowing, and mild to moderate left neural foraminal narrowing. At L3-L4, there is severe degenerative disc narrowing. Disc bulge and severe facet arthropathy result in severe spinal canal stenosis/thecal sac compression. There is severe bilateral neural foraminal c omprise. At L4-L5, there is diffuse disc bulge with severe facet arthropathy resulting in severe spinal canal stenosis/thecal sac compression. There is severe bilateral neural foraminal narrowing, left worse jose f n right. At L5-S1, there is advanced facet arthropathy without disc bulge or herniation. No spinal canal steno sis. There is mild bilateral neural foraminal narrowing, left worse than right. Paravertebral soft tissues are unremarkable. Impression: Severe degenerative spondylosis throughout the lumbar spine, as above, with multilevel significant ca nal stenosis and neural foraminal narrowing. 5 mm anterolisthesis of L4 over L5. 4 mm retrolisthesis of L2 over L3. 5 mm retrolisthesis of L3 over L4. Reviewed, dictated and finalized at [facility]. HOLDER Impression: Severe degenerative spondylosis throughout the lumbar spine, as above, with mul tilevel significant canal stenosis and neural foraminal narrowing. 5 mm anterolisthesis of L4 over L5. 4 mm retrolisthesis of L2 over L3. 5 mm retrolisthesis of L3 over L4.
== END 2024-09-20 07:56 | disposition home or self-care (01) ==
PROVIDERS: PCP Nurse Practitioner Family; Visit Provider Nurse Practitioner Family
DX: M47.26 Other spondylosis with radiculopathy, lumbar region (principal)
CPT/HCPCS: 72148